=== PATIENT | male | born 1970 | race Two or more races ===

== ENCOUNTER 2016-10-22 21:14 | Inpatient (IN) | payer SELFPAY ==
[~2016-10-22] VITALS: Ht 157.5 cm; Wt 72.6 kg
--- NOTE | 2016-10-22 21:29 | PHYS DOC ---
Past Medical History Past Medical History: Hypertension Past Surgical History: No Surgical History Additional Information: Non smoker Alcohol Use: None Drug Use: None Adult General Chief Complaint Chief Complaint: TRAUMA ALERT HPI HPI Patient is a 46 year old male who presents with crush injury to the right side of his body. He is a [id number] male who was working under a vehicle with a carjack in place. The car hafsa broke and the car fell on the patient. This occurred at 1900 p.m. He was able to squeeze himself out from underneath. The car landed on the right upper torso across his right chest. He arrives by private vehicle. His main complaint is right shoulder pain, mid back pain, right anterior rib pain. He denies striking his head no loss of consciousness. Denies any numbness or tingling to the arms or legs. No weakness to extremities. No abdominal pain. No low back pain. No injury to lower extremities. Left arm was uninvolved. He has vascular and neuro intact to the right hand. Limited range of motion to the right shoulder due to the pain. Review of Systems Review of Systems Constitutional: Denies fever or chills Eyes: Denies change in visual acuity, redness, or eye pain HENT: Denies nasal congestion or sore throat Respiratory: Denies cough or shortness of breath Cardiovascular: chest pain GI: Denies abdominal pain, nausea, vomiting, bloody stools or diarrhea : Denies dysuria or hematuria Musculoskeletal: see HPI Integument: abrasions Neurologic: Denies headache, focal weakness or sensory changes Current Medications Current Medications Current Medications Medications (Trade) Dose Ordered Sig/Keisha Start Time Stop Time Status Last Admin Dose Admin Fentanyl Citrate (Fentanyl 2ml Vial) 50 mcg PRN Q15MIN PRN 10/22/16 21:30 10/23/16 21:29 10/22/16 23:02 50 MCG Info (Do NOT chart on this entry -- for MONITORING) 1 each PRN DAILY PRN 10/22/16 21:45 10/24/16 21:44 Iohexol (Omnipaque 300 Mg/ml) 75 ml 1X ONCE 10/22/16 21:45 10/22/16 21:46 DC 10/22/16 22:01 75 ML Ondansetron HCl (Zofran) 4 mg 1X ONCE 10/22/16 21:30 10/22/16 21:31 DC 10/22/16 21:38 4 MG Sodium Chloride 1,000 ml @ 1,000 mls/hr Q1H 10/22/16 21:30 10/22/16 22:29 DC 10/22/16 21:39 1,000 MLS/HR Allergies Allergies Allergies Coded Allergies Type Severity Reaction Last Updated Verified No Known Drug Allergies 01/24/15 No Physical Exam Physical Exam Constitutional: Well developed, well nourished, with mild pain, non-toxic appearance. HENT: Normocephalic, atraumatic, bilateral external ears normal, oropharynx moist, no oral exudates, nose normal. Eyes: PERRLA, EOMI, conjunctiva normal, no discharge. Neck: Normal range of motion, no tenderness, supple, no stridor. Trachea is midline, cervical vertebral bodies nontender to palpation, no step-off no crepitance. Cardiovascular:Heart rate regular rhythm, no murmur Lungs & Thorax: Bilateral breath sounds clear to auscultation. No crepitance or subcutaneous emphysema. Tender to the right anterior ribs beneath the right breast. Some pain to the right scapular area. Abdomen: Bowel sounds normal, soft, no tenderness, no masses, no pulsatile masses. Nontender to deep palpation of his abdomen. Skin: Warm, dry, no erythema, no rash. Abrasions to the right shoulder, right anterior chest, right mid back Back: Tenderness to thoracic spine. No step-off or crepitance. Nontender lumbar spine are nontender cervical spine. Pain to the right posterior rib scapular area. Extremities: Shoulder with abrasions anteriorly. Limited range of motion of the right shoulder due to pain. Elbow with full range of motion of wrist with full range of motion. Neurovascularly intact distally. Normal capillary refill and good radial pulse. Neurologic: Alert and oriented X 3, normal motor function, normal sensory function, no focal deficits noted. Psychologic: Affect normal, judgement normal, mood normal. Current Patient Data Vital Signs Vital Signs Date Time Temp Pulse Resp B/P (MAP) Pulse Ox O2 Delivery O2 Flow Rate FiO2 10/22/16 23:02 18 Room Air 10/22/16 21:18 98.2 94 157/104 (121) 96 98.2 Laboratory Tests Test 10/22/16 21:26 10/22/16 21:35 White Blood Count 14.7 x10^3/uL Red Blood Count 4.98 x10^6/uL Hemoglobin 15.8 g/dL Hematocrit 45.8 % Mean Corpuscular Volume 92 fL Mean Corpuscular Hemoglobin 32 pg Mean Corpuscular Hemoglobin Concent 34 g/dL Red Cell Distribution Width 13.5 % Platelet Count 208 x10^3/uL Neutrophils (%) (Auto) 87 % Lymphocytes (%) (Auto) 6 % Monocytes (%) (Auto) 6 % Eosinophils (%) (Auto) 0 % Basophils (%) (Auto) 1 % Neutrophils # (Auto) 12.8 x10^3uL Lymphocytes # (Auto) 0.9 x10^3/uL Monocytes # (Auto) 0.9 x10^3/uL Eosinophils # (Auto) 0.0 x10^3/uL Basophils # (Auto) 0.1 x10^3/uL Segmented Neutrophils % 83 % Band Neutrophils % 7 % Lymphocytes % 7 % Monocytes % 3 % Platelet Estimate Adequate Prothrombin Time 12.4 SEC Prothromb Time International Ratio 1.0 Activated Partial Thromboplast Time 26 SEC Sodium Level 141 mmol/L Potassium Level 3.8 mmol/L Chloride Level 103 mmol/L Carbon Dioxide Level 26 mmol/L Anion Gap 12 Blood Urea Nitrogen 12 mg/dL Creatinine 1.1 mg/dL Estimated GFR (Cockcroft-Gault) 72.7 BUN/Creatinine Ratio 11 Glucose Level 177 mg/dL Calcium Level 8.9 mg/dL Total Bilirubin 0.4 mg/dL Aspartate Amino Transf (AST/SGOT) 34 U/L Alanine Aminotransferase (ALT/SGPT) 55 U/L Alkaline Phosphatase 97 U/L Creatine Kinase 311 U/L Total Protein 7.8 g/dL Albumin 4.2 g/dL Albumin/Globulin Ratio 1.2 Lipase 276 U/L Ethyl Alcohol Level < 10 mg/dL Urine Collection Type Unknown Urine Color Yellow Urine Clarity Clear Urine pH 5.0 Urine Specific [place] 1.025 Urine Protein Negative mg/dL Urine Glucose (UA) 250 mg/dL Urine Ketones (Stick) Negative mg/dL Urine Blood Negative Urine Nitrite Negative Urine Bilirubin Negative Urine Urobilinogen Dipstick 0.2 mg/dL Urine Leukocyte Esterase Small Urine RBC Occ /HPF Urine WBC 5-10 /HPF Urine Squamous Epithelial Cells Few /LPF Urine Bacteria 0 /HPF Urine Mucus Mod /LPF Current Medications Medications (Trade) Dose Ordered Sig/Keisha Route PRN Reason Start Time Stop Time Status Last Admin Dose Admin Fentanyl Citrate (Fentanyl 2ml Vial) 50 mcg PRN Q15MIN PRN IV PAIN GREATER THAN 3/10 10/22/16 21:30 10/23/16 21:29 10/22/16 23:02 50 MCG Sodium Chloride 1,000 ml @ 1,000 mls/hr Q1H IV 10/22/16 21:30 10/22/16 22:29 DC 10/22/16 21:39 1,000 MLS/HR Ondansetron HCl (Zofran) 4 mg 1X ONCE IV 10/22/16 21:30 10/22/16 21:31 DC 10/22/16 21:38 4 MG Iohexol (Omnipaque 300 Mg/ml) 75 ml 1X ONCE IV 10/22/16 21:45 10/22/16 21:46 DC 10/22/16 22:01 75 ML Info (Do NOT chart on this entry -- for MONITORING) 1 each PRN DAILY PRN MC SEE COMMENTS 10/22/16 21:45 10/24/16 21:44 Lab Values Laboratory Tests Test 10/22/16 21:26 10/22/16 21:35 White Blood Count 14.7 x10^3/uL (4.0-11.0) H Red Blood Count 4.98 x10^6/uL (4.30-5.70) Hemoglobin 15.8 g/dL (13.0-17.5) Hematocrit 45.8 % (39.0-53.0) Mean Corpuscular Volume 92 fL (79-100) Mean Corpuscular Hemoglobin 32 pg (25-35) Mean Corpuscular Hemoglobin Concent 34 g/dL (31-37) Red Cell Distribution Width 13.5 % (11.5-14.5) Platelet Count 208 x10^3/uL (140-400) Neutrophils (%) (Auto) 87 % (31-73) H Lymphocytes (%) (Auto) 6 % (24-48) L Monocytes (%) (Auto) 6 % (0-9) Eosinophils (%) (Auto) 0 % (0-3) Basophils (%) (Auto) 1 % (0-3) Neutrophils # (Auto) 12.8 x10^3uL (1.8-7.7) H Lymphocytes # (Auto) 0.9 x10^3/uL (1.0-4.8) L Monocytes # (Auto) 0.9 x10^3/uL (0.0-1.1) Eosinophils # (Auto) 0.0 x10^3/uL (0.0-0.7) Basophils # (Auto) 0.1 x10^3/uL (0.0-0.2) Segmented Neutrophils % 83 % (35-66) H Band Neutrophils % 7 % (0-9) Lymphocytes % 7 % (24-48) L Monocytes % 3 % (0-10) Platelet Estimate Adequate (ADEQUATE) Prothrombin Time 12.4 SEC (11.7-14.0) Prothrombin Time INR 1.0 (0.8-1.1) PTT 26 SEC (24-38) Sodium Level 141 mmol/L (136-145) Potassium Level 3.8 mmol/L (3.5-5.1) Chloride Level 103 mmol/L (98-107) Carbon Dioxide Level 26 mmol/L (21-32) Anion Gap 12 (6-14) Blood Urea Nitrogen 12 mg/dL (8-26) Creatinine 1.1 mg/dL (0.7-1.3) Estimated GFR (Cockcroft-Gault) 72.7 BUN/Creatinine Ratio 11 (6-20) Glucose Level 177 mg/dL (70-99) H Calcium Level 8.9 mg/dL (8.5-10.1) Total Bilirubin 0.4 mg/dL (0.2-1.0) Aspartate Amino Transferase (AST) 34 U/L (15-37) Alanine Aminotransferase (ALT) 55 U/L (16-63) Alkaline Phosphatase 97 U/L (46-116) Creatine Kinase 311 U/L (39-308) H Total Protein 7.8 g/dL (6.4-8.2) Albumin 4.2 g/dL (3.4-5.0) Albumin/Globulin Ratio 1.2 (1.0-1.7) Lipase 276 U/L (73-393) Ethyl Alcohol Level < 10 mg/dL (0-10) Urine Collection Type Unknown Urine Color Yellow Urine Clarity Clear Urine pH 5.0 Urine Specific [place] 1.025 Urine Protein Negative mg/dL (NEG-TRACE) Urine Glucose (UA) 250 mg/dL (NEG) Urine Ketones (Stick) Negative mg/dL (NEG) Urine Blood Negative (NEG) Urine Nitrite Negative (NEG) Urine Bilirubin Negative (NEG) Urine Urobilinogen Dipstick 0.2 mg/dL (0.2 mg/dL) Urine Leukocyte Esterase Small (NEG) Urine RBC Occ /HPF (0-2) Urine WBC 5-10 /HPF (0-4) Urine Squamous Epithelial Cells Few /LPF Urine Bacteria 0 /HPF (0-FEW) Urine Mucus Mod /LPF Laboratory Tests 10/22/16 21:26 Laboratory Tests 10/22/16 21:26 Radiology/Procedures Radiology/Procedures CXR interpreted by myself at 2240 PM: multiple right rib fractures; no pneumothorax seen; clavicle fx. Right shoulder xray interpreted by myself at 2240 PM with clavicle fracture. Impressions: [facility] [address] [place], [place] [id number] IMAGING REPORT Signed PATIENT: ROSA M VALENCIA ACCOUNT: [id number] : 1970 LOCATION: ER AGE: 46 SEX: M EXAM STATUS: PRE ER ORD. PHYSICIAN: VINCE KERR MD REASON: trauma PROCEDURE: CT LUMBAR SPINE RECONSTRUCTION CT scan of the thoracic and lumbar spine without contrast 10/22/2016 CLINICAL HISTORY: Crush injury. Car fell on patient. Technique: 3 mm reconstructed sagittal and axial and coronal images of the lumbar spine were obtained from the data set generated from the patient's CT scan of the chest, abdomen and pelvis. One or more of the following individualized dose reduction techniques were utilized for this study: 1. Automated exposure control. 2. Adjustment of the mA and/or kV according to patient size. 3. Use of iterative reconstruction technique. FINDINGS: Sagittal and coronal reconstructed images demonstrate minimal S-shaped curvature of the thoracolumbar spine. Degenerative changes are seen involving the thoracic and lumbar disc spaces consisting of vertebral endplate sclerosis and minimal to mild anterior vertebral body osteophyte formation. No fracture or subluxation of the thoracic or lumbar vertebra is seen. IMPRESSION: No fracture or subluxation of the thoracic or lumbar vertebra is seen. Electronically signed by: Satish Spears MD (10/22/2016 10:55 PM) [facility] DICTATED and SIGNED BY: SATISH SPEARS MD DATE: 10/22/162249 CC: VINCE KERR MD; NO PCP ~ [facility] [address] [place] [address] IMAGING REPORT Signed PATIENT: ROSA M VALENCIA ACCOUNT: [id number] : 1970 LOCATION: ER AGE: 46 SEX: M EXAM STATUS: PRE ER ORD. PHYSICIAN: VINCE KERR MD REASON: trauma PROCEDURE: CT THORACIC SPINE RECONSTRUCT CT scan of the thoracic and lumbar spine without contrast 10/22/2016 CLINICAL HISTORY: Crush injury. Car fell on patient. Technique: 3 mm reconstructed sagittal and axial and coronal images of the lumbar spine were obtained from the data set generated from the patient's CT scan of the chest, abdomen and pelvis. One or more of the following individualized dose reduction techniques were utilized for this study: 1. Automated exposure control. 2. Adjustment of the mA and/or kV according to patient size. 3. Use of iterative reconstruction technique. FINDINGS: Sagittal and coronal reconstructed images demonstrate minimal S-shaped curvature of the thoracolumbar spine. Degenerative changes are seen involving the thoracic and lumbar disc spaces consisting of vertebral endplate sclerosis and minimal to mild anterior vertebral body osteophyte formation. No fracture or subluxation of the thoracic or lumbar vertebra is seen. IMPRESSION: No fracture or subluxation of the thoracic or lumbar vertebra is seen. Electronically signed by: Satish Spears MD (10/22/2016 10:55 PM) [facility] DICTATED and SIGNED BY: SATISH SPEARS MD DATE: 10/22/162249 CC: VINCE KERR MD; NO PCP ~ [facility] [address] [place] [address] IMAGING REPORT Signed PATIENT: ROSA M VALENCIA ACCOUNT: [id number] : 1970 LOCATION: ER AGE: 46 SEX: M EXAM STATUS: PRE ER ORD. PHYSICIAN: VINCE KERR MD REASON: crush injury right side PROCEDURE: CT CERVICAL SPINE WO CONTRAST CT scan of the cervical spine without contrast 10/22/2016 Clinical history: Crush injury. Car fell on patient. Neck pain. Technique: Unenhanced, contiguous, 0.625 mm axial sections were obtained through the cervical spine. Axial, coronal and sagittal reconstructed images were obtained. One or more of the following individualized dose reduction techniques were utilized for this study: 1. Automated exposure control. 2. Adjustment of the mA and/or kV according to patient size. 3. Use of iterative reconstruction technique. Findings: Sagittal and coronal reconstructed images demonstrate minimal lateral curvature of the cervical spine convex to the left. There is straightening of the normal cervical lordosis. No fracture or subluxation of the cervical vertebrae is seen. Degenerative changes are seen involving the uncovertebral and facet joints Impression: No fracture or subluxation of the cervical vertebra is identified. Electronically signed by: Satish Spears MD (10/22/2016 10:35 PM) [facility] DICTATED and SIGNED BY: SATISH SPEARS MD DATE: 10/22/162229 CC: VINCE KERR MD; NO PCP ~ [facility] [address] [facility] [place], [place] [id number] IMAGING REPORT Signed PATIENT: ROSA M VALENCIA ACCOUNT: [id number] : 1970 LOCATION: ER AGE: 46 SEX: M EXAM STATUS: PRE ER ORD. PHYSICIAN: VINCE KERR MD REASON: crush injury right side PROCEDURE: CT CHEST ABD PELVIS W/CONTRAST CT scan of the chest, abdomen and pelvis with contrast 10/22/2016 CLINICAL HISTORY: Crush injury. Car fall on patient. Chest, abdominal and pelvic pain. TECHNIQUE: After the intravenous administration of 75 cc of Omnipaque 300, contiguous, 5 mm axial sections were obtained through the chest, abdomen and pelvis. One or more of the following individualized dose reduction techniques were utilized for this study: 1. Automated exposure control. 2. Adjustment of the mA and/or kV according to patient size. 3. Use of iterative reconstruction technique. FINDINGS: The heart is borderline enlarged. The thoracic aorta tapers normally. No mediastinal hematoma is seen. Minimal dependent subsegmental atelectasis is seen bilaterally. A 4 mm calcified granuloma is seen involving right lower lobe. No acute pulmonary infiltrate is seen. No pleural effusion or pneumothorax is noted. A comminuted fracture is seen involving the right clavicle. The major distal fracture fragment is displaced inferiorly. Overriding of the fracture fragments is seen. Fractures of the lateral aspect of the right third, fourth, fifth and sixth ribs are seen. The right third rib fracture is mildly displaced inferiorly. The liver parenchyma has a decreased attenuation consistent with mild fatty infiltration. The spleen, pancreas, and adrenal glands are within normal limits. A 3 mm rounded low-attenuation lesion is seen within the midpole of the right kidney. This likely represents an angiomyolipoma. A 2.5 cm rounded low-attenuation lesion is seen involving the mid/lower pole of the left kidney. This likely represents a cyst. The abdominal aorta tapers normally. The gallbladder is slightly contracted. No free fluid or free air is seen within the abdomen. There is no evidence of bowel obstruction. Air and stool is seen throughout the colon. The appendix is well-visualized and is within normal limits. Images through the pelvis demonstrate the urinary bladder distended with urine. Multiple diverticula are seen involving the sigmoid colon. No inflammatory changes are seen in the adjacent fat. No pelvic hematoma seen. No free fluid is noted. Minimal S-shaped curvature of the thoracolumbar spine is seen. Degenerative changes are seen involving the lower thoracic and mid and lower lumbar spine. IMPRESSION: 1. Comminuted fractured of the right clavicle. 2. Fractures of the right third through sixth ribs are seen. No pneumothorax is noted. 3. No acute abnormality is seen involving the abdomen or pelvis. Electronically signed by: Satish Spears MD (10/22/2016 10:50 PM) [facility] Course & Med Decision Making Course & Med Decision Making Evaluated patient upon arrival. IV NS, CT ordered due to mechanism to r/o vertebral/ rib fx and intrathoracic and intraabdominal injury. Fentanyl for pain. At 2200 PM lab noted; patient to CT. At [address] results back: reviewed with clavicle and rt 3,4,5,6 noted. No pneumothorax. No solid organ injury. Consulted Dr Ramires (trauma) regarding admission-requests admission to hospitalists and he will consult. Admit inpatient to med/tele. Consult ortho to see in am re: clavicle fx. I spent approximately 30 minutes working and engaged directly in the patient care providing critical care evaluation this includes but not limited to time spent engaged in work directly related to the individual patients care. I spent time at the bedside, reviewing test results, discussing the case with staff, documenting the medical record and time spent with EMS discussing specific treatment issues when the patient presented and during his evaluation. This includes any discussion and updates with family members and/or patient. I have spoken with the patient and/or caregivers. I have explained the patient' s condition, diagnosis and treatment plan based on the information available to me at this time. I have answered the patient's and/or caregiver's questions and addressed any concerns. The patient and/or caregivers have as good an understanding of the patient's diagnosis, condition and treatment plan as can be expected at this point. The patient has been stabilized within the capability of the emergency department. The patient will be transported for further care and management or will be moved to an observation or inpatient service. I have communicated with the staff or medical practitioner taking over this patient's care. Dragon Disclaimer Dragon Disclaimer This electronic medical record was generated, in whole or in part, using a voice recognition dictation system. Departure Departure Impression: Primary Impression: Blunt chest trauma Additional Impressions: Multiple rib fractures involving four or more ribs Clavicle fracture Disposition: ADMITTED INPATIENT Condition: STABLE Referrals: NO PCP (PCP) Problem Qualifiers Primary Impression: Blunt chest trauma Encounter type: initial encounter Qualified Codes: S29.8XXA - Other specified injuries of thorax, initial encounter Additional Impressions: Clavicle fracture Encounter type: initial encounter Clavicle location: shaft Fracture type: closed Fracture alignment: displaced Laterality: right Qualified Codes: S42.021A - Displaced fracture of shaft of right clavicle, initial encounter for closed fracture VINCE KERR MD Oct 22, 2016 21:29
[2016-10-22] MEDS ORDERED: ONDANSETRON PF 4 MG/2 ML VIAL. IV ONE (21:30)
[2016-10-22] MEDS ORDERED: IV NORMAL SALINE 1000ML BAG 1,000 ML IV SCH (21:30)
[2016-10-22 21:35] LABS: BASO # 0.1 x10^3/uL (0.0-0.2); BASO % 1 % (0-3); EOS % 0 % (0-3); HEMATOCRIT 45.8 % (39.0-53.0); HEMOGLOBIN 15.8 g/dL (13.0-17.5); LYMPH # 0.9 x10^3/uL (1.0-4.8); LYMPH % 6 % (24-48); MEAN CORPUSCULAR HEMOGLOBIN 32 pg (25-35); MEAN CORPUSCULAR HGB CONC 34 g/dL (31-37); MEAN CORPUSCULAR VOLUME 92 fL (79-100); MONO % 6 % (0-9); NEUT % 87 % (31-73); PLATELET COUNT 208 x10^3/uL (140-400); RED BLOOD COUNT 4.98 x10^6/uL (4.30-5.70); RED CELL DISTRIBUTION WIDTH 13.5 % (11.5-14.5); WHITE BLOOD COUNT 14.7 x10^3/uL (4.0-11.0)
[2016-10-22] MEDS: fentaNYL PF VIAL 100 MCG/2 ML VIAL IV PRN ×2 (21:38→23:02)
[2016-10-22 21:42] LABS: CALCIUM 8.9 mg/dL (8.5-10.1); CREATININE 1.1 mg/dL (0.7-1.3); GFR 72.7; POTASSIUM 3.8 mmol/L (3.5-5.1)
[2016-10-22 21:44] LABS: PROTHROMBIN TIME PATIENT 12.4 SEC (11.7-14.0)
[2016-10-22] MEDS ORDERED: CONTRAST GIVEN MC PRN (21:45)
[2016-10-22] MEDS ORDERED: IOHEXOL 300 MG/ML 75 ML VIAL IV ONE (21:45)
[2016-10-22 21:48] LABS: ALBUMIN 4.2 g/dL (3.4-5.0); ALBUMIN/GLOBULIN RATIO 1.2 (1.0-1.7); TOTAL BILIRUBIN 0.4 mg/dL (0.2-1.0); TOTAL PROTEIN 7.8 g/dL (6.4-8.2)
[2016-10-22 21:50] LABS: BILIRUBIN,URINE NEGATIVE (NEG); GLUCOSE,URINE 250 mg/dL (NEG); NITRITE,URINE NEGATIVE (NEG); PROTEIN,URINE NEGATIVE (NEG-TRACE); UROBILINOGEN,URINE 0.2 mg/dL (0.2 mg/dL)
[2016-10-22 21:56] LABS: BACTERIA,URINE 0 /HPF (0-FEW); RBC,URINE OCC /HPF (0-2)
[2016-10-22 21:57] LABS: SQUAMOUS EPITHELIAL CELL,UR FEW /LPF
[2016-10-22 22:16] LABS: PLT ESTIMATE ADEQUATE (ADEQUATE)
--- NOTE | 2016-10-22 22:38 | RAD ---
CT scan of the cervical spine without contrast 10/22/2016 Clinical history: Crush injury. Car fell on patient. Neck pain. Technique: Unenhanced, contiguous, 0.625 mm axial sections were obtained through the cervical spine. Axial, coronal and sagittal reconstructed images were obtained. One or more of the following individualized dose reduction techniques were utilized for this study: 1. Automated exposure control. 2. Adjustment of the mA and/or kV according to patient size. 3. Use of iterative reconstruction technique. Findings: Sagittal and coronal reconstructed images demonstrate minimal lateral curvature of the cervical spine convex to the left. There is straightening of the normal cervical lordosis. No fracture or subluxation of the cervical vertebrae is seen. Degenerative changes are seen involving the uncovertebral and facet joints Impression: No fracture or subluxation of the cervical vertebra is identified. Electronically signed by: Satish Spears MD (10/22/2016 10:35 PM) [facility]
--- NOTE | 2016-10-22 22:53 | RAD ---
CT scan of the chest, abdomen and pelvis with contrast 10/22/2016 CLINICAL HISTORY: Crush injury. Car fall on patient. Chest, abdominal and pelvic pain. TECHNIQUE: After the intravenous administration of 75 cc of Omnipaque 300, contiguous, 5 mm axial sections were obtained through the chest, abdomen and pelvis. One or more of the following individualized dose reduction techniques were utilized for this study: 1. Automated exposure control. 2. Adjustment of the mA and/or kV according to patient size. 3. Use of iterative reconstruction technique. FINDINGS: The heart is borderline enlarged. The thoracic aorta tapers normally. No mediastinal hematoma is seen. Minimal dependent subsegmental atelectasis is seen bilaterally. A 4 mm calcified granuloma is seen involving right lower lobe. No acute pulmonary infiltrate is seen. No pleural effusion or pneumothorax is noted. A comminuted fracture is seen involving the right clavicle. The major distal fracture fragment is displaced inferiorly. Overriding of the fracture fragments is seen. Fractures of the lateral aspect of the right third, fourth, fifth and sixth ribs are seen. The right third rib fracture is mildly displaced inferiorly. The liver parenchyma has a decreased attenuation consistent with mild fatty infiltration. The spleen, pancreas, and adrenal glands are within normal limits. A 3 mm rounded low-attenuation lesion is seen within the midpole of the right kidney. This likely represents an angiomyolipoma. A 2.5 cm rounded low-attenuation lesion is seen involving the mid/lower pole of the left kidney. This likely represents a cyst. The abdominal aorta tapers normally. The gallbladder is slightly contracted. No free fluid or free air is seen within the abdomen. There is no evidence of bowel obstruction. Air and stool is seen throughout the colon. The appendix is well-visualized and is within normal limits. Images through the pelvis demonstrate the urinary bladder distended with urine. Multiple diverticula are seen involving the sigmoid colon. No inflammatory changes are seen in the adjacent fat. No pelvic hematoma seen. No free fluid is noted. Minimal S-shaped curvature of the thoracolumbar spine is seen. Degenerative changes are seen involving the lower thoracic and mid and lower lumbar spine. IMPRESSION: 1. Comminuted fractured of the right clavicle. 2. Fractures of the right third through sixth ribs are seen. No pneumothorax is noted. 3. No acute abnormality is seen involving the abdomen or pelvis. Electronically signed by: Satish Spears MD (10/22/2016 10:50 PM) [facility]
--- NOTE | 2016-10-22 22:58 | RAD ---
CT scan of the thoracic and lumbar spine without contrast 10/22/2016 CLINICAL HISTORY: Crush injury. Car fell on patient. Technique: 3 mm reconstructed sagittal and axial and coronal images of the lumbar spine were obtained from the data set generated from the patient's CT scan of the chest, abdomen and pelvis. One or more of the following individualized dose reduction techniques were utilized for this study: 1. Automated exposure control. 2. Adjustment of the mA and/or kV according to patient size. 3. Use of iterative reconstruction technique. FINDINGS: Sagittal and coronal reconstructed images demonstrate minimal S-shaped curvature of the thoracolumbar spine. Degenerative changes are seen involving the thoracic and lumbar disc spaces consisting of vertebral endplate sclerosis and minimal to mild anterior vertebral body osteophyte formation. No fracture or subluxation of the thoracic or lumbar vertebra is seen. IMPRESSION: No fracture or subluxation of the thoracic or lumbar vertebra is seen. Electronically signed by: Satish Spears MD (10/22/2016 10:55 PM) [facility]
[2016-10-22] MEDS ORDERED: MORPHINE SULFATE 4 MG/ML DISP.SYRIN. IV PRN (23:45)
[2016-10-22] MEDS ORDERED: ONDANSETRON PF 4 MG/2 ML VIAL. IV PRN (23:45)
[2016-10-22] MEDS ORDERED: ALBUTEROL SULFATE 2.5 MG/3 ML NEBU. NEB PRN (23:45)
[2016-10-22] MEDS ORDERED: fentaNYL PF VIAL 100 MCG/2 ML VIAL IV PRN ×2 (23:45)
[2016-10-23] VITALS (7 sets, daily range): BP systolic 112–134; BP diastolic 68–88
[2016-10-23] MEDS ORDERED: ALBUTEROL SULFATE 2.5 MG/3 ML NEBU. NEB PRN
[2016-10-23] MEDS: fentaNYL PF VIAL 100 MCG/2 ML VIAL IV PRN (00:33)
[2016-10-23] MEDS: MORPHINE SULFATE 4 MG/ML DISP.SYRIN. IV PRN ×3 (02:25→12:57)
[2016-10-23 06:59] LABS: BASO % 0 % (0-3); EOS % 1 % (0-3); HEMATOCRIT 41.6 % (39.0-53.0); HEMOGLOBIN 14.2 g/dL (13.0-17.5); LYMPH # 1.9 x10^3/uL (1.0-4.8); LYMPH % 24 % (24-48); MEAN CORPUSCULAR HEMOGLOBIN 31 pg (25-35); MEAN CORPUSCULAR HGB CONC 34 g/dL (31-37); MEAN CORPUSCULAR VOLUME 92 fL (79-100); MONO % 9 % (0-9); NEUT % 67 % (31-73); PLATELET COUNT 179 x10^3/uL (140-400); RED BLOOD COUNT 4.51 x10^6/uL (4.30-5.70); RED CELL DISTRIBUTION WIDTH 13.4 % (11.5-14.5); WHITE BLOOD COUNT 8.1 x10^3/uL (4.0-11.0)
[2016-10-23 07:31] LABS: CALCIUM 8.4 mg/dL (8.5-10.1); CREATININE 0.9 mg/dL (0.7-1.3); GFR 91.7; POTASSIUM 3.8 mmol/L (3.5-5.1)
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
[2016-10-23] MEDS: IPRATRPIUM/ALBUTEROL 0.5/2.5MG 3 ML NEBU. NEB SCH ×5 (08:26→19:45)
--- NOTE | 2016-10-23 09:11 | PDOC2 ---
LÓPEZ CID RHINOLOGIST 10/23/16 0911: CONSULT Date of Consult Date of Consult DATE: 10/23/16 TIME: 09:03 Reason for Consult Reason for Consult: trauma consult Referring Physician Referring Physician: ER Identification/Chief Complaint Chief Complaint trauma, crush injury Problems: Source Source: Chart review, Patient History of Present Illness Reason for Visit: Patient was working on car and hafsa released, causing car to fall on patient with injury to right side. He was able to get himself out from under car. Currently he has pain to right shoulder, it does hurt to take a deep breath. Past Medical History Cardiovascular: HTN Past Surgical History Past Surgical History: No pertinent history Family History Family History: Hypertension Social History No ALCOHOL: rare Drugs: None Lives: with Family Current Problem List Problem List Problems Medical Problems: (1) Blunt chest trauma Status: Acute (2) Clavicle fracture Status: Acute (3) Multiple rib fractures involving four or more ribs Status: Acute Current Medications Current Medications Current Medications Fentanyl Citrate (Fentanyl 2ml Vial) 50 mcg PRN Q15MIN PRN IV PAIN GREATER THAN 3/10 Last administered on 10/23/16 00:33; Start 10/22/16 at 21:30; Stop at 21:29 Sodium Chloride 1,000 ml @ 1,000 mls/hr Q1H IV Last administered on 10/22/16 21:39; Start 10/22/16 at 21:30; Stop 10/22/16 at 22:29; Status DC Ondansetron HCl (Zofran) 4 mg 1X ONCE IV Last administered on 10/22/16 21:38 ; Start 10/22/16 at 21:30; Stop 10/22/16 at 21:31; Status DC Iohexol (Omnipaque 300 Mg/ml) 75 ml 1X ONCE IV Last administered on 10/22/16 22:01; Start 10/22/16 at 21:45; Stop 10/22/16 at 21:46; Status DC Info (Do NOT chart on this entry -- for MONITORING) 1 each PRN DAILY PRN MC SEE COMMENTS; Start 10/22/16 at 21:45; Stop 10/24/16 at 21:44 Ondansetron HCl (Zofran) 4 mg PRN Q8HRS PRN IV NAUSEA/VOMITING Last administered on 10/23/16 06:25; Start 10/22/16 at 23:45; Stop 10/23/16 at 23:44 Morphine Sulfate 2 mg PRN Q2HR PRN IV PAIN; Start 10/22/16 at 23:45; Stop 10/23 at 23:44 Morphine Sulfate 4 mg PRN Q2HR PRN IV PAIN Last administered on 10/23/16 06:25 ; Start 10/22/16 at 23:45; Stop 10/23/16 at 23:44 Fentanyl Citrate (Fentanyl 2ml Vial) 50 mcg PRN Q1HR PRN IV PAIN; Start at 23:45; Stop 10/23/16 at 23:44 Fentanyl Citrate (Fentanyl 2ml Vial) 50 mcg PRN Q2HR PRN IV PAIN; Start at 23:45; Stop 10/23/16 at 23:44 Albuterol/ Ipratropium (Duoneb) 3 ml Q4HRS W/A NEB Last administered on 08:26; Start 10/23/16 at 00:00 Albuterol Sulfate (Ventolin Neb Soln) 2.5 mg PRN Q4HRS PRN NEB SHORTNESS OF BREATH; Start 10/22/16 at 23:45; Status Cancel Albuterol Sulfate (Ventolin Neb Soln) 2.5 mg PRN Q4HRS PRN NEB SHORTNESS OF BREATH; Start 10/23/16 at 00:00 Allergies Allergies: Coded Allergies: No Known Drug Allergies (Unverified , 01/24/15) ROS General: No: Chills, Other (fevers) PSYCHOLOGICAL ROS: No: Anxiety, Depression Eyes: No Blurry vision, No Double vision HEENT: No: Heacaches, Sore Throat Hematological and Lymphatic: No: Bleeding Problems, Blood Clots Respiratory: YES: Shortness of breath, No: Cough Cardiovascular: No Chest Pain, No Palpitations Gastrointestinal: Yes Nausea (with sitting up today), No Vomiting, No Abdominal Pain Genitourinary: No Dysuria, No Hematuria Musculoskeletal: Yes Joint Pain, No Muscle Pain Neurological: No Confusion, No Numbness/Tingling Skin: No Pruritus, No Rash Physical Exam General: Alert, Oriented X3, Cooperative, No acute distress HEENT: PERRLA, Mucous membr. moist/pink Lungs: Clear to auscultation, Normal air movement Heart: Regular rate, Normal S1, Normal S2 Abdomen: Soft, No tenderness, No hepatosplenomegaly Extremities: No clubbing, No cyanosis, Normal pulses Skin: Other (abrasions right side) Neuro: Normal speech, Sensation intact Psych/Mental Status: Mental status NL, Mood NL Vitals VITALS Vital Signs Date Time Temp Pulse Resp B/P (MAP) Pulse Ox O2 Delivery O2 Flow Rate FiO2 10/23/16 08:29 94 Room Air 10/23/16 07:00 97.9 81 20 117/76 (90) 97.9 Labs Labs Laboratory Tests Test 10/22/16 21:26 10/22/16 21:35 10/23/16 06:40 White Blood Count 14.7 x10^3/uL (4.0-11.0) 8.1 x10^3/uL (4.0-11.0) Red Blood Count 4.98 x10^6/uL (4.30-5.70) 4.51 x10^6/uL (4.30-5.70) Hemoglobin 15.8 g/dL (13.0-17.5) 14.2 g/dL (13.0-17.5) Hematocrit 45.8 % (39.0-53.0) 41.6 % (39.0-53.0) Mean Corpuscular Volume 92 fL (79-100) 92 fL (79-100) Mean Corpuscular Hemoglobin 32 pg (25-35) 31 pg (25-35) Mean Corpuscular Hemoglobin Concent 34 g/dL (31-37) 34 g/dL (31-37) Red Cell Distribution Width 13.5 % (11.5-14.5) 13.4 % (11.5-14.5) Platelet Count 208 x10^3/uL (140-400) 179 x10^3/uL (140-400) Neutrophils (%) (Auto) 87 % (31-73) 67 % (31-73) Lymphocytes (%) (Auto) 6 % (24-48) 24 % (24-48) Monocytes (%) (Auto) 6 % (0-9) 9 % (0-9) Eosinophils (%) (Auto) 0 % (0-3) 1 % (0-3) Basophils (%) (Auto) 1 % (0-3) 0 % (0-3) Neutrophils # (Auto) 12.8 x10^3uL (1.8-7.7) 5.4 x10^3uL (1.8-7.7) Lymphocytes # (Auto) 0.9 x10^3/uL (1.0-4.8) 1.9 x10^3/uL (1.0-4.8) Monocytes # (Auto) 0.9 x10^3/uL (0.0-1.1) 0.7 x10^3/uL (0.0-1.1) Eosinophils # (Auto) 0.0 x10^3/uL (0.0-0.7) 0.1 x10^3/uL (0.0-0.7) Basophils # (Auto) 0.1 x10^3/uL (0.0-0.2) 0.0 x10^3/uL (0.0-0.2) Segmented Neutrophils % 83 % (35-66) Band Neutrophils % 7 % (0-9) Lymphocytes % 7 % (24-48) Monocytes % 3 % (0-10) Platelet Estimate Adequate (ADEQUATE) Prothrombin Time 12.4 SEC (11.7-14.0) Prothromb Time International Ratio 1.0 (0.8-1.1) Activated Partial Thromboplast Time 26 SEC (24-38) Sodium Level 141 mmol/L (136-145) 141 mmol/L (136-145) Potassium Level 3.8 mmol/L (3.5-5.1) 3.8 mmol/L (3.5-5.1) Chloride Level 103 mmol/L (98-107) 106 mmol/L (98-107) Carbon Dioxide Level 26 mmol/L (21-32) 25 mmol/L (21-32) Anion Gap 12 (6-14) 10 (6-14) Blood Urea Nitrogen 12 mg/dL (8-26) 9 mg/dL (8-26) Creatinine 1.1 mg/dL (0.7-1.3) 0.9 mg/dL (0.7-1.3) Estimated GFR (Cockcroft-Gault) 72.7 91.7 BUN/Creatinine Ratio 11 (6-20) Glucose Level 177 mg/dL (70-99) 96 mg/dL (70-99) Calcium Level 8.9 mg/dL (8.5-10.1) 8.4 mg/dL (8.5-10.1) Total Bilirubin 0.4 mg/dL (0.2-1.0) Aspartate Amino Transf (AST/SGOT) 34 U/L (15-37) Alanine Aminotransferase (ALT/SGPT) 55 U/L (16-63) Alkaline Phosphatase 97 U/L (46-116) Creatine Kinase 311 U/L (39-308) 546 U/L (39-308) Total Protein 7.8 g/dL (6.4-8.2) Albumin 4.2 g/dL (3.4-5.0) Albumin/Globulin Ratio 1.2 (1.0-1.7) Lipase 276 U/L (73-393) Ethyl Alcohol Level < 10 mg/dL (0-10) Urine Collection Type Unknown Urine Color Yellow Urine Clarity Clear Urine pH 5.0 Urine Specific [place] 1.025 Urine Protein Negative mg/dL (NEG-TRACE) Urine Glucose (UA) 250 mg/dL (NEG) Urine Ketones (Stick) Negative mg/dL (NEG) Urine Blood Negative (NEG) Urine Nitrite Negative (NEG) Urine Bilirubin Negative (NEG) Urine Urobilinogen Dipstick 0.2 mg/dL (0.2 mg/dL) Urine Leukocyte Esterase Small (NEG) Urine RBC Occ /HPF (0-2) Urine WBC 5-10 /HPF (0-4) Urine Squamous Epithelial Cells Few /LPF Urine Bacteria 0 /HPF (0-FEW) Urine Mucus Mod /LPF Laboratory Tests Test 10/22/16 21:26 10/22/16 21:35 10/23/16 06:40 White Blood Count 14.7 x10^3/uL (4.0-11.0) 8.1 x10^3/uL (4.0-11.0) Red Blood Count 4.98 x10^6/uL (4.30-5.70) 4.51 x10^6/uL (4.30-5.70) Hemoglobin 15.8 g/dL (13.0-17.5) 14.2 g/dL (13.0-17.5) Hematocrit 45.8 % (39.0-53.0) 41.6 % (39.0-53.0) Mean Corpuscular Volume 92 fL (79-100) 92 fL (79-100) Mean Corpuscular Hemoglobin 32 pg (25-35) 31 pg (25-35) Mean Corpuscular Hemoglobin Concent 34 g/dL (31-37) 34 g/dL (31-37) Red Cell Distribution Width 13.5 % (11.5-14.5) 13.4 % (11.5-14.5) Platelet Count 208 x10^3/uL (140-400) 179 x10^3/uL (140-400) Neutrophils (%) (Auto) 87 % (31-73) 67 % (31-73) Lymphocytes (%) (Auto) 6 % (24-48) 24 % (24-48) Monocytes (%) (Auto) 6 % (0-9) 9 % (0-9) Eosinophils (%) (Auto) 0 % (0-3) 1 % (0-3) Basophils (%) (Auto) 1 % (0-3) 0 % (0-3) Neutrophils # (Auto) 12.8 x10^3uL (1.8-7.7) 5.4 x10^3uL (1.8-7.7) Lymphocytes # (Auto) 0.9 x10^3/uL (1.0-4.8) 1.9 x10^3/uL (1.0-4.8) Monocytes # (Auto) 0.9 x10^3/uL (0.0-1.1) 0.7 x10^3/uL (0.0-1.1) Eosinophils # (Auto) 0.0 x10^3/uL (0.0-0.7) 0.1 x10^3/uL (0.0-0.7) Basophils # (Auto) 0.1 x10^3/uL (0.0-0.2) 0.0 x10^3/uL (0.0-0.2) Segmented Neutrophils % 83 % (35-66) Band Neutrophils % 7 % (0-9) Lymphocytes % 7 % (24-48) Monocytes % 3 % (0-10) Platelet Estimate Adequate (ADEQUATE) Prothrombin Time 12.4 SEC (11.7-14.0) Prothromb Time International Ratio 1.0 (0.8-1.1) Activated Partial Thromboplast Time 26 SEC (24-38) Sodium Level 141 mmol/L (136-145) 141 mmol/L (136-145) Potassium Level 3.8 mmol/L (3.5-5.1) 3.8 mmol/L (3.5-5.1) Chloride Level 103 mmol/L (98-107) 106 mmol/L (98-107) Carbon Dioxide Level 26 mmol/L (21-32) 25 mmol/L (21-32) Anion Gap 12 (6-14) 10 (6-14) Blood Urea Nitrogen 12 mg/dL (8-26) 9 mg/dL (8-26) Creatinine 1.1 mg/dL (0.7-1.3) 0.9 mg/dL (0.7-1.3) Estimated GFR (Cockcroft-Gault) 72.7 91.7 BUN/Creatinine Ratio 11 (6-20) Glucose Level 177 mg/dL (70-99) 96 mg/dL (70-99) Calcium Level 8.9 mg/dL (8.5-10.1) 8.4 mg/dL (8.5-10.1) Total Bilirubin 0.4 mg/dL (0.2-1.0) Aspartate Amino Transf (AST/SGOT) 34 U/L (15-37) Alanine Aminotransferase (ALT/SGPT) 55 U/L (16-63) Alkaline Phosphatase 97 U/L (46-116) Creatine Kinase 311 U/L (39-308) 546 U/L (39-308) Total Protein 7.8 g/dL (6.4-8.2) Albumin 4.2 g/dL (3.4-5.0) Albumin/Globulin Ratio 1.2 (1.0-1.7) Lipase 276 U/L (73-393) Ethyl Alcohol Level < 10 mg/dL (0-10) Urine Collection Type Unknown Urine Color Yellow Urine Clarity Clear Urine pH 5.0 Urine Specific [place] 1.025 Urine Protein Negative mg/dL (NEG-TRACE) Urine Glucose (UA) 250 mg/dL (NEG) Urine Ketones (Stick) Negative mg/dL (NEG) Urine Blood Negative (NEG) Urine Nitrite Negative (NEG) Urine Bilirubin Negative (NEG) Urine Urobilinogen Dipstick 0.2 mg/dL (0.2 mg/dL) Urine Leukocyte Esterase Small (NEG) Urine RBC Occ /HPF (0-2) Urine WBC 5-10 /HPF (0-4) Urine Squamous Epithelial Cells Few /LPF Urine Bacteria 0 /HPF (0-FEW) Urine Mucus Mod /LPF Assessment/Plan Assessment/Plan closed right clavicle fracture multiple right-sided rib fractures crush injury pulmonary toiletry and pain control for rib fractures no surgical needs identified LAUREANO PIMENTEL MD 10/23/16 1327: CONSULT Allergies Allergies: Coded Allergies: No Known Drug Allergies (Unverified , 01/24/15) Assessment/Plan Assessment/Plan pt seen, interviewed and examined agree with above pain consult for intercostal blocks? Thanks for consult LÓPEZ CID APRN Oct 23, 2016 09:11 LAUREANO PIMENTEL MD Oct 23, 2016 13:27
[2016-10-23] MEDS ORDERED: oxyCODONE IR 5 MG TABLET PO PRN (11:30)
--- NOTE | 2016-10-23 12:45 | HP ---
ADMIT DATE: 10/23/2016 CHIEF COMPLAINT: Traumatic rib fracture. HISTORY OF PRESENT ILLNESS: The patient is a 46-year-old healthy [place] gentleman who presented after his car that he was working under fell off the hafsa and crushed him. He apparently was lying on his side working on the car when hafsa collapsed and car came crushed down onto his right rib cage. With difficulty, he was able to extricate himself and as he was alone, brought himself to the hospital. He was found with multiple rib fractures as well as a clavicle fracture. He is now admitted for pain management and observation. The patient denies any injury to his foot. Denies any numbness, tingling in his arm, is able to move his fingers. Pain is severe with moving of his head as well as deep breathing. He denies any abdominal pain, nausea, vomiting, any palpitations. PAST MEDICAL HISTORY: Hypertension. FAMILY HISTORY: Mother with hypertension as well as multiple DVTs. SOCIAL HISTORY: No tobacco. Rarely drinks alcohol, no drug use. ALLERGIES: No known drug allergies. HOME MEDICATIONS: Reconciled with MAR. REVIEW OF SYSTEMS: Positive as per HPI. He denies any symptoms in rest of organ system review. PHYSICAL EXAMINATION: VITAL SIGNS: From today show a blood pressure of 122/81, heart rate of 70, respiratory rate at 18. He is afebrile, pulse ox is at 93 on room air. GENERAL: This is an overweight 46-year-old [place] gentleman, alert and oriented, in no acute distress. LUNGS: Clear anteriorly. HEART: Regular rate and rhythm. ABDOMEN: Has positive bowel sounds, soft, nontender. EXTREMITIES: Show no edema. Right arm is in a sling. Swelling is noted around the right clavicle as well, no hematoma noted. He is able to move his neck, albeit with pain. LABORATORY DATA: CBC with a WBC of 8.1, hemoglobin 14.2, platelets of 179. Chemistries with a BUN and creatinine of 9 and 0.9, normal electrolytes, CK elevated earlier this morning. Tox screen was negative for alcohol. Urine negative. IMAGING STUDY: A chest x-ray shows displaced and overriding clavicular fracture with displaced right-sided lateral rib fractures involving the 3rd, 4th, 5th and 6th ribs. No pneumothorax is noted. CT of the lumbar and thoracic spine shows no fracture or subluxation of the vertebra. A CT of the chest, abdomen and pelvis shows no fractures. No pneumothorax is noted, no acute abnormality involving the abdomen and pelvis. ASSESSMENT AND PLAN: The patient is a 46-year-old [place] gentleman with a crush injury with rib fractures and clavicular fracture on the right. He is now admitted for pain control. This is suboptimal at this point on IV medications only. He will receive ice as well as ibuprofen for the swelling. We will start him on oxycodone and hopefully will replace need for IV medications. Goal is for him to be able to move even with his injuries. The patient does have a history of accelerated hypertension. Blood pressure currently is well controlled. We will have to obtain the name and dosage of his home medications. We will continue that. Prophylaxis will be achieved with Lovenox and H2 erwin. JARETT RAMIREZ MD DR: JORDI/nts JOB#: [id number] / [id number] KRISTINE
[2016-10-23] MEDS: IBUPROFEN 800 MG TABLET. PO SCH ×2 (12:58→21:11)
[2016-10-23] MEDS: SENNOSIDES/DOCUSATE 8.6/50MG TABLET. PO SCH (12:58)
[2016-10-23] MEDS: oxyCODONE IR 5 MG TABLET PO PRN (17:16)
--- NOTE | 2016-10-23 20:24 | PAIN ---
DATE OF SERVICE: 10/23/2016 CHIEF COMPLAINT: Traumatic rib fractures on the right. HISTORY OF PRESENT ILLNESS: The patient is a 46-year-old male who presented after his car he was working on underneath fell off of the hafsa and crushed him on his right side. The patient was lying on his side working on the car and the hafsa collapsed to his right rib cage and shoulder. The patient was admitted to hospital with a fracture of the right clavicle as well as contusion of the right shoulder and fractures of the third, fourth, fifth, and sixth right lateral ribs with displacement. No pneumothorax was identified. The patient had a full workup including x-rays, CT scan as well. The patient reports worse pain with deep breathing and movement, but most of the pain is in his right shoulder. The patient reports he is actually breathing quite well, he is sleeping well at night, the oral medications that he has been taking as an inpatient are controlling his pain near 90%. The patient reports that his main pain is from his right shoulder anterior clavicle. PAST MEDICAL HISTORY: Significant for hypertension. SOCIAL HISTORY: The patient does not smoke, rarely drinks alcohol. No other drug use or other illicit drugs. FAMILY HISTORY: Shows hypertension and DVTs in the patient's mother. CURRENT MEDICATIONS: Well documented on the patient's MAR. ALLERGIES: The patient has no known drug allergies. REVIEW OF SYSTEMS: The patient's review of systems is positive for his toes in history of present illness. All systems reviewed and otherwise negative. PHYSICAL EXAMINATION: VITAL SIGNS: His blood pressure is 143/92, pulse 78, respirations 16, temperature 98.2 degrees Fahrenheit, height is 5 feet 2 inches, weight 160 pounds. GENERAL: The patient is awake, alert, oriented, appropriate, very pleasant demeanor. The patient accompanied by his . HEENT: Head shows normocephalic, atraumatic. Extraocular movements are intact and symmetrical. Oral cavity shows mucous membranes moist and pink. Dentition is intact. NECK: Shows anterior throat supple. Swallow reflex is symmetrical. CHEST: Shows normal on inspection. The patient is wearing a sling on his right arm, with palpation shows some significant tenderness in the mid axillary line just posterior to this on the right side in the upper aspect of the thorax, but not lower, left side is nontender. The patient has had some bruising over the right lateral anterior aspect of the thoracic cage as well as the shoulder. LUNGS: Clear; however, to auscultation bilaterally. No rales, rhonchi or rubs are auscultated in any of the goff, upper or lower bilaterally. HEART: Shows S1 and S2 clear. No murmurs auscultated. ABDOMEN: Soft, nontender, nondistended. No palpable organomegaly. There is no rebound or guarding demonstrated. EXTREMITIES: The patient's extremities show right arm in a sling, swelling around the right clavicle anteriorly. The patient has limited rotation of the right shoulder secondary to pain. The patient's back shows spine grossly in midline. Cervical paraspinous musculature shows only some mild tenderness in the inferior aspect of the superior trapezius on the right. The patient has full rotational motion of cervical spine, both laterally greater than 45 degrees, right and left forward extension and forward flexion without difficulty and full rotation. IMPRESSION: This is a 46-year-old male with recent traumatic injury with rib fractures 3rd through 6th ribs on the right side with very well controlled pain at this time secondary to his rib fractures. Chief complaint of pain is in the right shoulder anteriorly. PLAN: Options were discussed with the patient including intercostal blocks. The patient would like to hold on this at this time as he is doing very well with his current pain regimen of oral medications while he is in the hospital and again is sleeping well at night, is breathing very easily and is at complete rest during our exam today. The patient will continue the oral medications that he is currently receiving and follow up if necessary in future. MAKAYLA ORNELAS MD DR: PRECIOUS/kimberly JOB#: [id number] / [id number]
[2016-10-24] MEDS: oxyCODONE IR 5 MG TABLET PO PRN ×2 (03:14→09:50)
[2016-10-24 03:23] VITALS: BP 123/76
[2016-10-24] MEDS: IPRATRPIUM/ALBUTEROL 0.5/2.5MG 3 ML NEBU. NEB SCH ×5 (06:00→15:17)
[2016-10-24] MEDS: IBUPROFEN 800 MG TABLET. PO SCH (06:17)
[2016-10-24 07:00] VITALS: BP 117/69
[2016-10-24] MEDS: SENNOSIDES/DOCUSATE 8.6/50MG TABLET. PO SCH (09:50)
[2016-10-24 11:00] VITALS: BP 127/84
[2016-10-24 15:09] VITALS: BP 130/96
[2016-10-24] MEDS ORDERED: OXYC5TAB PO (16:27)
[2016-10-24] MEDS ORDERED: SENN-22 PO (16:27)
--- NOTE | 2016-10-26 21:19 | DS ---
DATE OF DISCHARGE: 10/24/2016 CHIEF COMPLAINT: Traumatic rib fracture. HOSPITAL COURSE: The patient is a 46-year-old gentleman who sustained multiple right-sided rib fractures after a car fell on him while he was working underneath. He was admitted for pain control. Thankfully, no internal organ was punctured. Pain was controlled with IV and p.o. medications. He saw Dr. Parra from the pain clinic but declined any nerve root injections. He felt ready for discharge 1 day after admission. PHYSICAL EXAMINATION: VITAL SIGNS: Show a blood pressure of 130/96, heart rate of 92, respiratory rate at 20. He is afebrile. GENERAL: This is a 46-year-old mildly overweight [place] gentleman, alert and oriented, in no acute distress. LUNGS: Fairly clear, although unable to take deep breaths secondary to rib pain. HEART: Regular rate and rhythm. ABDOMEN: Has positive bowel sounds, soft, nontender. EXTREMITIES: Show no edema. DISCHARGE DIAGNOSIS: Multiple right-sided rib fractures. DISCHARGE CONDITION: Improved. DISCHARGE DISPOSITION: To home. DISCHARGE MEDICATIONS: Please refer to MAR. DISCHARGE INSTRUCTIONS: The patient will follow up with PCP in 1-2 weeks. He will see pain clinic if needed. JARETT RAMIREZ MD DR: JORDI/nts JOB#: [id number] / [id number] KRISTINE
== END 2016-10-24 18:30 | disposition home or self-care (01) | DRG 185 ==
LOC: ER 21:14 → 4 NORTH 23:30
PROVIDERS: ADMIT Internal Medicine; ATTEND Internal Medicine
DX: S22.41XA Multiple fractures of ribs, right side, initial encounter for closed fracture (principal); I10 Essential (primary) hypertension; S42.001A Fracture of unspecified part of right clavicle, initial encounter for closed fracture; S40.011A Contusion of right shoulder, initial encounter; W19.XXXA Unspecified fall, initial encounter; Y93.89 Activity, other specified; Z82.49 Family history of ischemic heart disease and other diseases of the circulatory system; Y92.89 Other specified places as the place of occurrence of the external cause
CPT/HCPCS: 36415; 71010; 71260; 72125; 73030; 74177; 80048; 80053; 81001; 82550; 83690; 85007; 85025; 85610; 85730; 86850; 86900; 86901; 87086; 94250; 94640; 94760; 96361; 96374; 96375; 99212; G0480; J2270; J2405; J3010; J7030; J7620; Q9967; 99291-25